=== PATIENT | female | born 1965 | race Caucasian/White ===

== ENCOUNTER 2017-05-24 15:20 | Outpatient (CLI) | payer OTHER ==
[2017-05-24 16:18] LABS: #Basophils 0.1 thou/uL (0.0-0.2); #Eosinphils 0.1 thou/uL (0.0-0.7); #Lymphocytes 2.2 thou/uL (1.20-3.40); #Monocytes 0.3 thou/uL (0.11-0.59); #Neutrophils 2.8 thou/uL (1.40-6.50); %Basophils 1.2 % (0.0-1.0); %Eosinophils 1.5 % (0.0-10.0); %Lymphocytes 40.4 % (21.0-51.0); %Monocytes 5.6 % (0.0-10.0); %Neutrophils 51.3 % (42.0-75.0); Hemoglobin 11.1 g/dL (12.0-16.0); Mean Corpuscular HGB CONC 32.7 g/dL (32.0-36.0); Mean Corpuscular Hemoglobin 28.7 pg (27.0-31.0); Mean Corpuscular Volume 87.7 fl (81.0-99.0); Mean Platelet Volume 8.5 fL (7.4-10.4); Platelet Count 171 thou/uL (130-400); RBC Distribution Width 13.5 % (11.5-14.5); Red Blood Cell (RBC) Count 3.87 mill/uL (4.20-5.40); White Blood Cell (WBC) Count 5.4 thou/uL (4.8-10.8)
[2017-05-24 16:21] LABS: Anion Gap 12 mmol/L (10-20); BUN (Urea Nitrogen) 25 mg/dL (9.8-20.1); Calc. Creatinine Clearance 0 mL/min (70-130); Calcium 8.9 mg/dL (7.8-10.44); Carbon Dioxide 26 mmol/L (22-29); Cardiac Risk 3.4 (Less than 4.5); Chloride 105 mmol/L (98-107); Cholesterol 165 mg/dl (< 200 Desired); Estimated GFR-MDRD 52; Glucose 182 mg/dL (70-105); HDL Cholesterol 49 mg/dL (>60 Neg Risk); LDL Cholesterol, Calculated 77 mg/dL; Potassium 3.7 mmol/L (3.5-5.1); Sodium 139 mmol/L (136-145); Triglycerides 193 mg/dL (Less than 150)
== END 2017-05-24 15:21 | disposition home or self-care (01) ==
LOC: MADLABBHPM 15:20
PROVIDERS: ATTEND Family Medicine
DX: E03.9 Hypothyroidism, unspecified (principal)
CPT/HCPCS: 36415; 80048; 80061; 84443; 85025

== ENCOUNTER 2017-08-14 08:23 | Emergency (ER) | payer BC, OTHER | END 2017-08-14 09:15 | disposition home or self-care (01) | LOC: MADERS 08:23 | DX: S91.311A Laceration without foreign body, right foot, initial encounter (principal); E03.9 Hypothyroidism, unspecified; K21.9 Gastro-esophageal reflux disease without esophagitis; I10 Essential (primary) hypertension; E66.9 Obesity, unspecified; Z87.891 Personal history of nicotine dependence; Z79.899 Other long term (current) drug therapy; V89.2XXA Person injured in unspecified motor-vehicle accident, traffic, initial encounter | CPT/HCPCS: 99282 ==

== ENCOUNTER 2017-08-23 09:11 | Outpatient (CLI) | payer BC ==
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
== END 2017-08-23 09:12 | disposition home or self-care (01) ==
LOC: MADRAD 09:11
PROVIDERS: ATTEND Physician Assistant
DX: S22.41XD Multiple fractures of ribs, right side, subsequent encounter for fracture with routine healing (principal); S22.32XD Fracture of one rib, left side, subsequent encounter for fracture with routine healing; S27.329D Contusion of lung, unspecified, subsequent encounter
CPT/HCPCS: 71020

== ENCOUNTER 2017-08-29 16:44 | Emergency (ER) | payer BC ==
[2017-08-29] MEDS ORDERED: Naproxen 500 MG TAB ONE (17:05)
[2017-08-29] MEDS ORDERED: HYDROcodone/Acetaminophen 10/325 mg Tablet ONE (17:05)
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
== END 2017-08-29 17:50 | disposition home or self-care (01) ==
LOC: MADERS 16:44
DX: M79.601 Pain in right arm (principal); E03.9 Hypothyroidism, unspecified; K21.9 Gastro-esophageal reflux disease without esophagitis; I10 Essential (primary) hypertension; E66.9 Obesity, unspecified; Z87.891 Personal history of nicotine dependence; Z79.899 Other long term (current) drug therapy

== ENCOUNTER 2017-10-15 16:22 | Emergency (ER) | payer BC, OTHER ==
[~2017-10-15 16:22] MED LIST: Sodium Chloride Irrig Solution 250 ML BOT ONE
[2017-10-15] MEDS ORDERED: Lidocaine 2% w/Epinephrine 1:200K 20 ML VIAL ONE (16:42)
== END 2017-10-15 17:25 | disposition home or self-care (01) ==
LOC: MADERS 16:22
DX: S61.511A Laceration without foreign body of right wrist, initial encounter (principal); E03.9 Hypothyroidism, unspecified; K21.9 Gastro-esophageal reflux disease without esophagitis; I10 Essential (primary) hypertension; E66.9 Obesity, unspecified; Z87.891 Personal history of nicotine dependence; Z79.899 Other long term (current) drug therapy; W22.8XXA Striking against or struck by other objects, initial encounter
CPT/HCPCS: 12001

== ENCOUNTER 2017-12-14 13:53 | Outpatient (CLI) | payer BC ==
--- NOTE | 2017-12-14 14:17 | RAD ---
LEFT KNEE 3 VIEWS: HISTORY: Fall last night, left knee pain. FINDINGS/IMPRESSION: Degenerative changes are present. No acute fracture or dislocation is seen. POS: [facility]
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
== END 2017-12-14 13:54 | disposition home or self-care (01) ==
LOC: MADRAD 13:53
PROVIDERS: ATTEND Family Medicine
DX: S89.92XA Unspecified injury of left lower leg, initial encounter (principal); M17.12 Unilateral primary osteoarthritis, left knee

== ENCOUNTER 2019-10-01 09:26 | Emergency (ER) | payer BC ==
[2019-10-01 09:58] LABS: Bilirubin Negative (Negative); Blood, Urine Large (Negative); Clarity Slightly Cloudy (Clear); Glucose, Urine (Dipstick) Negative (Negative); Leukocyte Moderate (Negative); Nitrite Negative (Negative); Protein, Urine (Dipstick) 100 mg/dL (Neg-Trace); Urobilinogen 0.2 mg/dL (Less than 2)
[2019-10-01 10:04] LABS: Bacteria/HPF 1+ HPF (None Seen); RBC/HPF Greater than 50 HPF (0-3); WBC/HPF Greater Than 50 HPF (0-3)
[2019-10-01] MEDS ORDERED: Nitrofurantoin Monohyd/M-Cryst 100 MG CAP ONE (10:16)
== END 2019-10-01 10:28 | disposition home or self-care (01) ==
LOC: MADERS 09:26
DX: N30.91 Cystitis, unspecified with hematuria (principal); J20.8 Acute bronchitis due to other specified organisms; I10 Essential (primary) hypertension; E03.9 Hypothyroidism, unspecified; E66.9 Obesity, unspecified; K21.9 Gastro-esophageal reflux disease without esophagitis; Z87.891 Personal history of nicotine dependence
CPT/HCPCS: 81003; 81015; 87086; 99283

== ENCOUNTER 2020-06-01 14:05 | Emergency (ER) | payer BC ==
[~2020-06-01 14:05] MED LIST changes: +Sodium Chloride 0.9% 100 ML BAG ONE; -Sodium Chloride Irrig Solution 250 ML BOT ONE
[2020-06-01] MEDS ORDERED: Sodium Chloride 0.9% 1,000 ML ONE (15:04)
[2020-06-01] MEDS ORDERED: Vancomycin HCl 750 MG VIAL ONE (15:04)
[2020-06-01] MEDS ORDERED: Sodium Chloride 0.9% 500 ML ONE (15:05)
[2020-06-01 15:19] LABS: #Lymphocytes 1.7 thou/uL (1.20-3.40); #Monocytes 0.5 thou/uL (0.11-0.59); #Neutrophils 8.3 thou/uL (1.40-6.50); %Basophils 0.3 % (0.0-1.0); %Eosinophils 0.4 % (0.0-10.0); %Monocytes 4.6 % (0.0-10.0); %Neutrophils 78.7 % (42.0-75.0); Hemoglobin 10.6 g/dL (12.0-16.0); Mean Corpuscular HGB CONC 31.4 g/dL (32.0-36.0); Mean Corpuscular Hemoglobin 26.3 pg (27.0-31.0); Mean Corpuscular Volume 83.9 fL (78.0-98.0); Mean Platelet Volume 7.4 fL (7.4-10.4); Platelet Count 259 thou/uL (130-400); RBC Distribution Width 13.7 % (11.5-14.5); Red Blood Cell (RBC) Count 4.03 mill/uL (4.20-5.40); White Blood Cell (WBC) Count 10.5 thou/uL (4.8-10.8)
[2020-06-01 15:38] LABS: ALT (SGPT) 11 U/L (8-55); AST (SGOT) 7 U/L (5-34); Albumin 3.8 g/dL (3.5-5.0); Alkaline Phosphatase 80 U/L (40-110); Anion Gap 15 mmol/L (10-20); BUN (Urea Nitrogen) 17 mg/dL (9.8-20.1); Bilirubin, Total 0.3 mg/dL (0.2-1.2); Calc. Creatinine Clearance 0 mL/min (70-130); Calcium 8.8 mg/dL (7.8-10.44); Carbon Dioxide 24 mmol/L (22-29); Chloride 104 mmol/L (98-107); Estimated GFR-MDRD 71; Globulin 2.7 g/dL (2.4-3.5); Glucose 176 mg/dL (70-105); Potassium 3.2 mmol/L (3.5-5.1); Protein, Total 6.5 g/dL (6.0-8.3); Sodium 140 mmol/L (136-145)
[2020-06-01] MEDS ORDERED: Ketorolac Tromethamine 30 MG/ML VIAL ONE (17:09)
[2020-06-01] MEDS ORDERED: diphenhydrAMINE 50 MG/ML VIAL ONE (17:26)
[2020-06-01] MEDS ORDERED: Cefepime 2 GM VIAL ONE (17:27)
[2020-06-01 18:04] LABS: Lactic Acid 0.6 mmol/L (0.5-2.2)
== END 2020-06-01 18:34 | disposition home or self-care (01) ==
LOC: MADERS 14:05
DX: T81.40XA Infection following a procedure, unspecified, initial encounter (principal); E03.9 Hypothyroidism, unspecified; K21.9 Gastro-esophageal reflux disease without esophagitis; I10 Essential (primary) hypertension; Z87.891 Personal history of nicotine dependence; Z79.891 Long term (current) use of opiate analgesic
CPT/HCPCS: 36415; 80053; 83605; 85025; 87040; 96365; 96366; 96368; 96375; J0692; J1200; J1885; J3370; J3490; J7030; J7050

== ENCOUNTER 2023-01-05 19:04 | Emergency (ER) | payer BC ==
[2023-01-05] MEDS ORDERED: Ibuprofen 600 MG TAB ONE (19:36)
[2023-01-05] MEDS ORDERED: Dexamethasone 4 MG TAB ONE (20:07)
== END 2023-01-05 20:16 | disposition home or self-care (01) ==
LOC: MADERS 19:04
DX: B34.9 Viral infection, unspecified (principal); E03.9 Hypothyroidism, unspecified; K21.9 Gastro-esophageal reflux disease without esophagitis; I10 Essential (primary) hypertension; E66.9 Obesity, unspecified; Z20.822 Contact with and (suspected) exposure to COVID-19; Z87.891 Personal history of nicotine dependence; Z79.82 Long term (current) use of aspirin; Z79.899 Other long term (current) drug therapy
CPT/HCPCS: 87804; 99283; J8540; U0003; U0005

== ENCOUNTER 2023-11-02 15:27 | Emergency (ER) | payer BC ==
[~2023-11-02 15:27] MED LIST changes: +Iopamidol 370 76% 100 ML VIAL ONE; -Sodium Chloride 0.9% 100 ML BAG ONE
[2023-11-02] MEDS ORDERED: Ondansetron ODT 4 MG TAB ONE (16:35)
[2023-11-02] MEDS ORDERED: Mag-Al Plus 1200/1200/120 MG (30 mL) UDCUP ONE (16:35)
[2023-11-02] MEDS ORDERED: Sodium Chloride 0.9% 500 ML ONE (16:36)
[2023-11-02] MEDS ORDERED: Lidocaine 2% Viscous 100 ML BOTTLE ONE (16:36)
[2023-11-02 16:49] LABS: #Basophils 0.1 thou/uL (0.0-0.2); #Eosinphils 0.1 thou/uL (0.0-0.7); #Monocytes 0.4 thou/uL (0.11-0.59); #Neutrophils 3.1 thou/uL (1.40-6.50); %Basophils 1.2 % (0.0-1.0); %Eosinophils 1.4 % (0.0-10.0); %Lymphocytes 35.1 % (21.0-51.0); %Monocytes 7.7 % (0.0-10.0); %Neutrophils 54.6 % (42.0-75.0); Hematocrit 37.8 % (36.0-47.0); Hemoglobin 11.8 g/dL (12.0-16.0); Mean Corpuscular HGB CONC 31.3 g/dL (32.0-36.0); Mean Corpuscular Hemoglobin 28.3 pg (27.0-31.0); Mean Corpuscular Volume 90.7 fl (78.0-98.0); Mean Platelet Volume 7.9 fL (7.4-10.4); Platelet Count 179 10x3/uL (130-400); RBC Distribution Width 13.4 % (11.5-14.5); Red Blood Cell (RBC) Count 4.17 mill/uL (4.20-5.40); White Blood Cell (WBC) Count 5.7 10x3/uL (4.8-10.8)
[2023-11-02 17:04] LABS: ALT (SGPT) 14 U/L (8-55); AST (SGOT) 12 U/L (5-34); Albumin 3.8 g/dL (3.5-5.0); Alkaline Phosphatase 67 U/L (40-110); Anion Gap 12 mmol/L (10-20); BUN (Urea Nitrogen) 13 mg/dL (9.8-20.1); Bilirubin, Total 0.2 mg/dL (0.2-1.2); Calc. Creatinine Clearance 0 mL/min (70-130); Calcium 8.9 mg/dL (7.8-10.44); Carbon Dioxide 26 mmol/L (22-29); Chloride 107 mmol/L (98-107); Estimated GFR 72; Globulin 2.5 g/dL (2.4-3.5); Glucose 129 mg/dL (70-105); Lipase 34 U/L (8-78); Magnesium 2.1 mg/dL (1.6-2.6); Potassium 3.7 mmol/L (3.5-5.1); Protein, Total 6.3 g/dL (6.0-8.3); Sodium 141 mmol/L (136-145)
== END 2023-11-02 17:40 | disposition home or self-care (01) ==
LOC: MADERS 15:27
DX: K21.9 Gastro-esophageal reflux disease without esophagitis (principal); K29.00 Acute gastritis without bleeding; E03.9 Hypothyroidism, unspecified; I10 Essential (primary) hypertension; Z87.891 Personal history of nicotine dependence; Z79.899 Other long term (current) drug therapy
CPT/HCPCS: 74177; 80053; 83690; 83735; 85025; 87804; 96360; J7030; Q0162; Q9967

== ENCOUNTER 2025-07-12 12:24 | Emergency (ER) | payer BC ==
[2025-07-12] MEDS ORDERED: Dexamethasone 4 MG TAB ONE (13:23)
[2025-07-12 13:27] LABS: #Basophils 0.1 thou/uL (0.0-0.2); #Eosinophils 0.0 thou/uL (0.0-0.7); #Lymphocytes 1.5 thou/uL (1.20-3.40); #Monocytes 0.4 thou/uL (0.11-0.59); #Neutrophils 3.3 thou/uL (1.40-6.50); %Basophils 1.3 % (0.0-1.0); %Eosinophils 0.7 % (0.0-10.0); %Lymphocytes 29.0 % (21.0-51.0); %Monocytes 7.0 % (0.0-10.0); %Neutrophils 62.1 % (42.0-75.0); Hematocrit 40.0 % (36.0-47.0); Hemoglobin 12.9 g/dL (12.0-16.0); Mean Corpuscular Hemoglobin 28.7 pg (27.0-31.0); Mean Corpuscular Volume 89.1 fl (78.0-98.0); Platelet Count 199 10x3/uL (130-400); Red Blood Cell (RBC) Count 4.49 mill/uL (4.20-5.40); White Blood Cell (WBC) Count 5.3 10x3/uL (4.8-10.8)
[2025-07-12 13:44] LABS: ALT (SGPT) 23 U/L (Less than 34); AST (SGOT) 26 U/L (11-34); Albumin 4.0 g/dL (3.1-4.5); Alkaline Phosphatase 72 U/L (40-110); Anion Gap 13 mmol/L (10-20); BUN (Urea Nitrogen) 12 mg/dL (9.8-20.1); Bilirubin, Total 0.2 mg/dL (0.3-1.2); Calc. Creatinine Clearance 0 mL/min (70-130); Calcium 8.5 mg/dL (7.8-10.44); Carbon Dioxide 23 mmol/L (22-29); Chloride 110 mmol/L (98-107); Globulin 2.6 g/dL (2.4-3.5); Glucose 101 mg/dL (70-105); Magnesium 2.1 mg/dL (1.6-2.6); Potassium 4.2 mmol/L (3.5-5.1); Sodium 142 mmol/L (136-145)
== END 2025-07-12 14:04 | disposition home or self-care (01) ==
LOC: MADERS 12:24
DX: R42 Dizziness and giddiness (principal); R29.700 NIHSS score 0; E03.9 Hypothyroidism, unspecified; I10 Essential (primary) hypertension; Z79.890 Hormone replacement therapy; Z87.891 Personal history of nicotine dependence; Z79.899 Other long term (current) drug therapy
CPT/HCPCS: 36415; 80053; 83735; 85025; 93005; 99284; J8540; Q0162